=== PATIENT | female | born 1965 | race Two or more races ===

== ENCOUNTER 2019-01-02 08:23 | Emergency (ER) | payer BC ==
[~2019-01-02] VITALS: Ht 175.3 cm; Wt 77.1 kg
[2019-01-02 08:23] VITALS: BP 140/86
--- NOTE | 2019-01-02 09:09 | NUR ---
Patient discharged to home in stable condition. Written and verbal after care instructions given. Patient verbalizes understanding of instruction.
== END 2019-01-02 09:10 | disposition home or self-care (01) ==
LOC: ER 08:29
DX: M54.17 Radiculopathy, lumbosacral region (principal); M54.42 Lumbago with sciatica, left side; W01.0XXA Fall on same level from slipping, tripping and stumbling without subsequent striking against object, initial encounter; Y93.89 Activity, other specified; Y92.89 Other specified places as the place of occurrence of the external cause; Y99.0 Civilian activity done for income or pay
CPT/HCPCS: 99281; A4606; Z7502

== ENCOUNTER 2019-01-10 09:18 | Emergency (ER) | payer BC ==
[~2019-01-10] VITALS: Ht 175.3 cm; Wt 86.2 kg
--- NOTE | 2019-01-10 09:26 | NUR ---
AAOX3, CAME TO ER C/O ABDOMINAL PAIN, NAUSEA, VOMITING AND DIARRHEA SINCE YESTERDAY. RR IS EVEN AND UNLABORED WITH NAD NOTED. SKIN IS WARM AND DRY. PLACED ON HOSPITAL GOWN AND PULSO OX. DR SANDERSON AT BS FOR EVAL.
[2019-01-10] MEDS ORDERED: MORPHINE SULFATE INJ 2 MG/ML DISP.SYRIN IV ONE (09:30)
[2019-01-10] MEDS ORDERED: IV NS 0.9% 1,000 ML BAG IV ONE (09:30)
[2019-01-10] MEDS ORDERED: ONDANSETRON HCL/PF 4 MG/2 ML VIAL IVP ONE (09:30)
[2019-01-10] MEDS ORDERED: ONDANSETRON HCL/PF 4 MG/2 ML VIAL ONE ×2 (09:33→11:03)
[2019-01-10] MEDS ORDERED: MORPHINE SULFATE INJ 4 MG/ML DISP.SYRIN ONE (09:34)
--- NOTE | 2019-01-10 09:35 | NUR ---
Line started on R ac g20, blood drawn from line and sent to lab
[2019-01-10 09:38] LABS: BASOPHILS # (AUTO) 0.1 /CMM (0.0-0.2); BASOPHILS % (AUTO) 2.6 % (0.0-2.0); EOSINOPHILS % (AUTO) 0.6 % (0.0-6.0); HEMATOCRIT 38 % (33-45); HEMOGLOBIN 12.3 g/dL (11.5-14.8); LYMPHOCYTES # (AUTO) 0.9 /CMM (0.8-4.8); LYMPHOCYTES % (AUTO) 18.2 % (20.0-44.0); MEAN CORPUSCULAR HGB CONC 32 g/dl (31.0-36.0); MEAN CORPUSCULAR VOLUME 87 fL (82-100); MONOCYTES # (AUTO) 0.4 /CMM (0.1-1.30); MONOCYTES % (AUTO) 7.5 % (2.0-12.0); NEUTROPHILS # (AUTO) 3.7 /CMM (1.8-8.9); NEUTROPHILS % (AUTO) 71.1 % (43.0-81.0); PLATELET COUNT (AUTO) 261 /CMM (150-450); RED BLOOD CELL COUNT(AUTO) 4.35 MIL/uL (4.0-5.2); WHITE BLOOD COUNT (AUTO) 5.2 K/uL (4.3-11.0)
[2019-01-10 09:50] LABS: ALBUMIN 3.5 g/dL (3.4-5.0); BILIRUBIN,DIRECT 0.1 mg/dL (0.0-0.2); BILIRUBIN,TOTAL 0.2 mg/dL (0.2-1.0); CALCIUM, SERUM 8.6 mg/dL (8.5-10.1); CREATININE 0.7 mg/dL (0.6-1.3); POTASSIUM 3.4 mmol/L (3.5-5.1); TOTAL PROTEIN, SERUM 6.7 g/dL (6.4-8.2)
[2019-01-10] MEDS ORDERED: ONDANSETRON HCL/PF - ER 4 MG/2 ML VIAL IV ONE (11:00)
[2019-01-10] MEDS ORDERED: IV NS 0.9% 500 ML BAG IV ONE (11:00)
[2019-01-10 11:32] VITALS: BP 124/70
--- NOTE | 2019-01-10 11:35 | NUR ---
For discharge. After care instructions given Home ambulatory Stable in NO obvious distress NO acute changes
== END 2019-01-10 11:41 | disposition home or self-care (01) ==
LOC: ER 09:20
DX: R10.13 Epigastric pain (principal); R10.31 Right lower quadrant pain; R10.32 Left lower quadrant pain; M54.30 Sciatica, unspecified side
CPT/HCPCS: 36415; 71045; 74176; 80048; 80076; 83690; 85025; 93005; 96361; 96374; 96375; 96376; 99284; A4606; J2270; J2405 ×2; J7030; J7040

== ENCOUNTER 2019-06-06 13:16 | Emergency (ER) | payer BC ==
[~2019-06-06] VITALS: Ht 175.3 cm; Wt 77.1 kg
[2019-06-06 13:34] VITALS: BP 128/103
--- NOTE | 2019-06-06 13:55 | NUR ---
SEEN AND EXAMINED BY CRIS RIVERA
--- NOTE | 2019-06-06 14:16 | NUR ---
Patient discharged to home in stable condition. Written and verbal after care instructions given. Patient verbalizes understanding of instruction.
== END 2019-06-06 14:25 | disposition home or self-care (01) ==
LOC: ER 13:20
DX: S83.8X1A Sprain of other specified parts of right knee, initial encounter (principal); W01.0XXA Fall on same level from slipping, tripping and stumbling without subsequent striking against object, initial encounter; Y93.89 Activity, other specified; Y92.89 Other specified places as the place of occurrence of the external cause; Y99.8 Other external cause status

== ENCOUNTER 2019-07-04 10:17 | Emergency (ER) | payer BC ==
[~2019-07-04] VITALS: Ht 175.3 cm; Wt 77.1 kg
[2019-07-04 10:25] VITALS: BP 124/75
--- NOTE | 2019-07-04 11:06 | NUR ---
Patient discharged to home in stable condition. Written and verbal after care instructions given. Patient verbalizes understanding of instruction.
== END 2019-07-04 11:07 | disposition home or self-care (01) ==
LOC: ER 10:21
DX: M25.561 Pain in right knee (principal); W19.XXXA Unspecified fall, initial encounter; Y93.89 Activity, other specified; Y92.89 Other specified places as the place of occurrence of the external cause; Y99.8 Other external cause status

== ENCOUNTER 2019-07-18 14:30 | Emergency (ER) | payer BC ==
[~2019-07-18] VITALS: Ht 175.3 cm; Wt 84.4 kg
[2019-07-18 15:02] VITALS: BP 113/93
--- NOTE | 2019-07-18 15:10 | NUR ---
JEWELS SANTOS AT BEDSIDE FOR EVAL.
--- NOTE | 2019-07-18 15:18 | NUR ---
ALIGNER TYPEWRITER AT BEDSIDE FOR XRAY
[2019-07-18] MEDS ORDERED: ACETAMINOPHEN 325 MG TABLET ONE (15:19)
[2019-07-18] MEDS ORDERED: ACETAMINOPHEN 325 MG TABLET PO ONE (15:30)
== END 2019-07-18 16:21 | disposition home or self-care (01) ==
LOC: ER 14:37
DX: S80.01XA Contusion of right knee, initial encounter (principal); M17.11 Unilateral primary osteoarthritis, right knee; V49.49XA Driver injured in collision with other motor vehicles in traffic accident, initial encounter; Y93.89 Activity, other specified; Y92.413 State road as the place of occurrence of the external cause; Y99.8 Other external cause status
CPT/HCPCS: 73564-TC

== ENCOUNTER 2019-08-07 11:59 | Emergency (ER) | payer BC ==
[~2019-08-07] VITALS: Ht 175.3 cm; Wt 77.1 kg
[2019-08-07 12:06] VITALS: BP 166/71
== END 2019-08-07 12:59 | disposition home or self-care (01) ==
LOC: ER 11:59
DX: M25.561 Pain in right knee (principal); W01.0XXA Fall on same level from slipping, tripping and stumbling without subsequent striking against object, initial encounter; Y93.89 Activity, other specified; Y92.89 Other specified places as the place of occurrence of the external cause; Y99.8 Other external cause status
CPT/HCPCS: 73564-TC

== ENCOUNTER 2019-08-22 10:33 | Emergency (ER) | payer BC ==
[~2019-08-22] VITALS: Ht 170.2 cm; Wt 79.4 kg
[2019-08-22] MEDS ORDERED: KETOROLAC TROMETHAMINE INJ 60 MG/2 ML VIAL IM ONE ×2 (10:59→11:00)
[2019-08-22] MEDS ORDERED: DIAZEPAM 5 MG TABLET ONE (10:59)
[2019-08-22] MEDS ORDERED: DIAZEPAM 5 MG TABLET PO ONE (11:00)
[2019-08-22] MEDS ORDERED: HYDROCODONE/APAP 5/325MG 1 EACH TABLET ONE (11:05)
[2019-08-22] MEDS ORDERED: HYDROCODONE/APAP 5/325MG 1 EACH TABLET PO ONE (11:30)
--- NOTE | 2019-08-22 12:57 | NUR ---
Pt left prior to after care instructions.
[2019-08-22 12:58] VITALS: BP 173/74
== END 2019-08-22 12:59 | disposition home or self-care (01) ==
LOC: ER 10:33
DX: M54.41 Lumbago with sciatica, right side (principal); G89.29 Other chronic pain
CPT/HCPCS: 72131; 99284; J1885

== ENCOUNTER 2020-01-07 13:43 | Emergency (ER) | payer BC ==
[~2020-01-07] VITALS: Ht 172.7 cm; Wt 79.4 kg
--- NOTE | 2020-01-07 14:13 | NUR ---
PT PRESENTED TO THE ER WITH A C/O VAGINAL REDNESS, PAIN, BLANCHED SKIN, OPEN SORES THAT EXTEND TO THE RECTAL AREA. PT IS TAKING TYLENOL FOR THE PAIN AND USING DEIRDRE OINTMENT TOPICALLY. PT STATED THAT SHE IS AVIODING USING THE BATHROOM BECAUSE OF THE PAIN.
[2020-01-07] MEDS ORDERED: HYDROCODONE/APAP 5/325MG 1 EACH TABLET ONE (14:17)
[2020-01-07] MEDS: HYDROCODONE/APAP 5/325MG 1 EACH TABLET PO ONE (14:28)
[2020-01-07 14:33] VITALS: BP 136/82
== END 2020-01-07 14:33 | disposition home or self-care (01) ==
LOC: ER 13:51
DX: B00.9 Herpesviral infection, unspecified (principal); B37.3 Candidiasis of vulva and vagina; Z98.84 Bariatric surgery status